=== PATIENT | female | born 1955 | race Native Hawaiian/Other Pacific Islander ===

== ENCOUNTER 2023-10-17 15:05 | Outpatient (CLI) | payer MEDICARE, OTHER, SELFPAY | END 2023-10-17 15:06 | disposition home or self-care (01) | LOC: AMB 10-20 03:00 | PROVIDERS: PCP Family Medicine; Visit Provider Family Medicine | DX: S79.912A Unspecified injury of left hip, initial encounter (principal); S69.92XA Unspecified injury of left wrist, hand and finger(s), initial encounter; W01.0XXA Fall on same level from slipping, tripping and stumbling without subsequent striking against object, initial encounter; Y92.008 Other place in unspecified non-institutional (private) residence as the place of occurrence of the external cause | CPT/HCPCS: A0425; A0427 ==

== ENCOUNTER 2023-10-17 15:35 | Observation (INO) | payer MEDICARE, OTHER, SELFPAY ==
[2023-10-17 15:43] VITALS: BP 116/81; PULSE 85; RESP 20; TEMP 36.3; O2SAT 96; BMI 24.0
--- NOTE | 2023-10-17 15:55 | CRLHL7_ITS ---
For Patients: As a result of the Cures Act, medical imaging exams and procedure reports are released immediately into your electronic medical record. You may view this report before your referring provider. If you have questions, please contact your health care provider. Indication: Fall Technique: Three views of the left wrist Comparison: None Findings/impression : Comminuted, predominantly transverse, impacted fracture of the distal left radial metaphysis with dorsal angulation of the distal fracture fragment. Displaced ulnar styloid process fracture. Moderate soft tissue swelling about the wrist. Vascular calcifications. Dictated by Dennis De La O MD @ 10/17/2023 5:27:57 PM (Electronically Signed)
--- NOTE | 2023-10-17 15:55 | CRLHL7_ITS ---
For Patients: As a result of the Century Cures Act, medical imaging exams and procedure reports are released immediately into your electronic medical record. You may view this report before your referring provider. If you have questions, please contact your health care provider. Indication: Fall Technique: Frontal view of the pelvis and frontal and lateral views of the left hip Comparison: None Findings/impression : No acute fracture or malalignment. No significant osteoarthritic degenerative changes of the bilateral hips. There are some degenerative changes of the visualized lower lumbar spine and bilateral sacroiliac joints. No acute soft tissue abnormality. Prominent calcific atherosclerosis. Dictated by Dennis De La O MD @ 10/17/2023 5:24:50 PM (Electronically Signed)
--- NOTE | 2023-10-17 16:00 | ED.FALL ---
HPI - Fall General Chief Complaint: Fall/Minor Trauma Stated Complaint: fall Time Seen by Provider: 10/17/23 15:45 History of Present Illness HPI Narrative: This 68-year-old female comes in with injuries because of a fall that occurred just prior to arrival. She comes in with left wrist injury in shows a deformity typical of a fracture. She also complains of pain in her left hip. She states that if she has not ambulated since the fall. She came in by ambulance and did receive an IV dose of pain medicine EN route here. Related Data Home Medications ?Medication ?Instructions ?Recorded ?Confirmed GNP 10/17/23 acetaminophen 500 mg tablet 500 mg PO Q8H PRN pain 10/17/23 10/17/23 amlodipine 5 mg tablet 5 mg PO DAILY 10/17/23 10/17/23 aspirin 81 mg tablet,delayed 81 mg PO DAILY 10/17/23 10/17/23 release blood sugar diagnostic (Accu-Chek 10/17/23 10/17/23 Guide test strips) carvedilol 25 mg tablet 25 mg PO BID 10/17/23 10/17/23 escitalopram oxalate 20 mg tablet 20 mg PO QAM 10/17/23 10/17/23 ferrous sulfate 325 mg (65 mg 325 mg PO DAILY 10/17/23 10/17/23 iron) tablet (FeroSul) hydralazine 100 mg tablet 100 mg PO 3XD 10/17/23 10/17/23 hydroxyzine HCl 10 mg tablet 10 mg PO QPM PRN anxiety 10/17/23 10/17/23 insulin aspart subcut 10/17/23 (niacinamide)(U-100) 100 unit/mL(3 mL) subcutaneous pen (Fiasp FlexTouch U-100 Insulin) insulin aspart U-100 100 unit/mL subcut 10/17/23 (3 mL) subcutaneous pen insulin glargine 100 unit/mL (3 8 unit subcut QPM 10/17/23 10/17/23 mL) subcutaneous pen (Basaglar KwikPen U-100 Insulin) isosorbide dinitrate 20 mg tablet 40 mg PO 3XD 10/17/23 10/17/23 oxycodone 5 mg tablet PO 10/17/23 pantoprazole 40 mg tablet,delayed 40 mg PO acid reflux 10/17/23 release pen needle, diabetic 31 gauge x 10/17/23 10/17/23 5/16 (BD Ultra-Fine Short Pen Needle) pravastatin 20 mg tablet 20 mg PO QPM 10/17/23 10/17/23 prednisone 10 mg tablet PO 10/17/23 sirolimus 0.5 mg tablet 0.5 mg PO DAILY 10/17/23 10/17/23 tacrolimus 0.5 mg capsule,extended mg PO 10/17/23 release 24 hr (Astagraf XL) torsemide 20 mg tablet 40 mg PO 10/17/23 vitamin E (dl, acetate) 180 mg 180 mg PO DAILY 10/17/23 10/17/23 (400 unit) capsule Previous Rx's ?Medication ?Instructions ?Recorded hydrocodone 5 mg-acetaminophen 325 1 tab PO Q4-6H PRN pain #15 tabs 10/17/23 mg tablet Allergies Allergy/AdvReac Type Severity Reaction Status Date / Time No Known Drug Allergies Allergy Verified 10/17/23 15:47 Review of Systems Status of ROS: Reports: 10 or more systems reviewed and unremarkable except as noted in History and below Narrative: Constitutional: No fevers, no weight gain or loss. Eyes: No discharge. No vision changes. HENT: No congestion, no sore throat, no ear pain. Cardiovascular: No chest pain, no palpitations. Respiratory: No shortness of breath, no wheezes, no cough. Gastrointestinal: No abdominal pain, no vomiting, no diarrhea. Genitourinary: No dysuria, no hematuria. Musculoskeletal: Left wrist and left hip injury. Skin: No rashes, no pruritis. Neurological: No dizziness, weakness, sensory change, speech change. Endo/Heme/Allergies: No bruising or bleeding. No polydipsia. Pysch: no suicidality, no anxiety, no insomnia. All other systems reviewed and are negative. PFSH PFS Social History Smoking Status: Never smoker How often do you have a drink containing alcohol: never AUDIT-C Alcohol total score: 0 Non-prescribed substance use: denies use service: No Exam Narrative: Exam Narrative: Constitutional: Well-developed, well-nourished, no acute distress. HEENT: Normocephalic, atraumatic. Neck: Normal range of motion. Nontender. Supple. Heart: Regular. Normal rate. Intact distal pulses. Lungs: Clear to auscultation. No chest discomfort. No wheezes, rhonchi, or rales. Abdomen: Normal bowel sounds. Nontender. No rebound tenderness. Genitalia: Deferred. Back: No midline tenderness. Normal range of motion. Extremities: Left wrist has deformity typical of a fracture. Left hip pain. Skin: Intact. No rash. Warm. No erythema or pallor. Neurologic: No altered sensation. No weakness. Alert and oriented. Psychiatric: No suicidality. No anxiety or depression. No insomnia. Nursing notes and vitals signs are reviewed. Const: Vital Signs, click to edit/add: Vital Signs - 24 hr 10/17/23 15:43 Temperature 97.3 F L Pulse Rate [Pulse Oximeter] 85 Respiratory Rate 20 Blood Pressure [Ri ght Upper Arm] 116/81 Pulse Oximetry 96 Oxygen Delivery Me thod Room Air Course Vital Signs Vital signs: Initial Vital Signs Temperature 97.3 F L 10/17/23 15:43 Temperature Source Temporal Artery Scan 10/17/23 15:43 Pulse Rate 85 10/17/23 15:43 Pulse Rhythm Regular 10/17/23 15:43 Respiratory Rate 20 10/17/23 15:43 Blood Pressure 116/81 10/17/23 15:43 Blood Pressure Mean 92 10/17/23 15:43 Blood Pressure Position Sitting 10/17/23 15:43 Pulse Oximetry 96 10/17/23 15:43 Oxygen Delivery Method Room Air 10/17/23 15:43 Vital Signs Temperature 97.3 F L 10/17/23 15:43 Pulse Rate 85 10/17/23 15:43 Respiratory Rate 20 10/17/23 15:43 Blood Pressure 116/81 10/17/23 15:43 Pulse Oximetry 96 10/17/23 15:43 Oxygen Delivery Method Room Air 10/17/23 15:43 Temperature 97.3 F L 10/17/23 15:43 Pulse Rate 85 10/17/23 15:43 Respiratory Rate 20 10/17/23 15:43 Blood Pressure 116/81 10/17/23 15:43 Pulse Oximetry 96 10/17/23 15:43 Oxygen Delivery Method Room Air 10/17/23 15:43 Medications Administered Medications: Discontinued Medications Generic Name Dose Route Start Last Admin Trade Name Freq PRN Reason Stop Dose Admin Hydromorphone HCl 0.2 mg 10/17/23 15:59 10/17/23 16:08 Hydromorphone 0.5 Mg/0.5 Ml Inj IVP 10/17/23 16:00 0.2 mg ONCE ONE Administration MDM - Fall MDM Narrative Medical decision making narrative: This patient comes in for evaluation of injuries from a fall that occurred just prior to arrival. She arrives with an obvious deformity of her left wrist but also complains of pain in her left hip. An x-ray of the left hip and pelvis is obtained and by my review and chordee to radiology report shows no acute findings. The left wrist does have an obvious fracture that is angulated. The patient received an IV in the ambulance on the way here and a dose of pain medicine. She received an additional dose of Dilaudid 0.2 mg for pain after arrival here. The patient's wrist would benefit from a reduction and I discussed options for pain management in doing so. She agreed to attempt a hematoma block. I did administer 5 mL of lidocaine 1% without much relief. I made a 2nd attempt in a different area and this brought great relief. I was able to manipulate her wrist without any discomfort. An x-ray was done after reduction and showed improvement in the alignment. The patient was placed in a sugar-tong splint using Ortho Glass material and then placed in a sling. She received a prescription for [employer] [facility] and is instructed to follow-up with orthopedic clinic for further management. Imaging Data XR L Hip: Radiologist's impression: No acute fracture or malalignment. XR L Wrist: Radiologist's impression: Comminuted, predominantly transverse, impacted fracture of the distal left radial metaphysis with dorsal angulation of the distal fracture fragment. Discharge Plan Discharge Clinical Impression: Fracture of wrist Patient Disposition: Home w/ Parent or Adult Condition: Stable Additional Instructions: Wear wrist splint and use pain medicine as needed and directed. Follow-up with orthopedic clinic for ongoing management. Call [phone] for appointment. Prescriptions: New hydrocodone-acetaminophen 5-325 mg tablet 1 tab PO Q4-6H PRN (Reason: pain) Qty: 15 0RF No Action (DME) Accu-Chek Guide test strips Strip MISCELLANEOUS QID amlodipine 5 mg tablet 5 mg PO DAILY aspirin 81 mg tablet,delayed release (DR/EC) 81 mg PO DAILY acetaminophen 500 mg tablet 500 mg PO Q8H PRN (Reason: pain) carvedilol 25 mg tablet 25 mg PO BID ferrous sulfate [FeroSul] 325 mg (65 mg iron) tablet 325 mg PO DAILY escitalopram oxalate 20 mg tablet 20 mg PO QAM GNP prednisone 10 mg tablet PO torsemide 20 mg tablet 40 mg PO hydralazine 100 mg tablet 100 mg PO 3XD pantoprazole 40 mg tablet,delayed release (DR/EC) 40 mg PO isosorbide dinitrate 20 mg tablet 40 mg PO 3XD pravastatin 20 mg tablet 20 mg PO QPM hydroxyzine HCl 10 mg tablet 10 mg PO QPM PRN (Reason: anxiety) oxycodone 5 mg tablet PO (DME) pen needle, diabetic [BD Ultra-Fine Short Pen Needle] 31 gauge x 5/16 needle MISCELLANEOUS Patient Comments: USE TO ADMINISTER INSULIN AT HOME FOUR TIMES A DAY. insulin aspart U-100 100 unit/mL (3 mL) insulin pen subcut insulin glargine [Basaglar KwikPen U-100 Insulin] 100 unit/mL (3 mL) insulin pen 8 unit subcut QPM vitamin E (dl, acetate) 180 mg (400 unit) capsule 180 mg PO DAILY sirolimus 0.5 mg tablet 0.5 mg PO DAILY Astagraf XL 0.5 mg capsule,extended release 24hr PO Fiasp FlexTouch U-100 Insulin 100 unit/mL (3 mL) insulin pen subcut Follow Up/Referrals: Ginger Ewing DO [Primary Care Provider] - Stand Alone Forms: [facility] Info Instructions
[2023-10-17] MEDS: HYDROmorphone 0.5 mg/0.5 ml inj 0.2 MG IVP (16:08)
--- NOTE | 2023-10-17 18:13 | CRLHL7_ITS ---
For Patients: As a result of the Century Cures Act, medical imaging exams and procedure reports are released immediately into your electronic medical record. You may view this report before your referring provider. If you have questions, please contact your health care provider. Indication: POST-REDUCTION Technique: Single lateral view of the left wrist Comparison: Same day left wrist radiograph Findings/impression : Successful reduction of the previously visualized distal radial and ulnar fractures which now appear in anatomic alignment on single provided lateral view. Interval worsening of soft tissue edema throughout the wrist and now hand. Dictated by Dennis De La O MD @ 10/17/2023 6:54:10 PM (Electronically Signed)
[2023-10-17 18:48] VITALS: BP 121/80; PULSE 86; RESP 18; O2SAT 95
--- NOTE | 2023-10-17 18:48 | P.IMHP_ITS ---
Hospitalist- H&P: RADHA History of Present Illness Date Seen: 10/17/23 Chief complaint: fall Narrative: Anna Quiroz is a 68 year old female who fell on her wrist today. She lives with her daughter. She was in her living room got up from her couch. She thinks she tripped over plastic. She is unsure if she hit her head or had LOC. She presented to ED and complained left wrist and hip pain. In the ED xray wrist Comminuted, predominantly transverse, impacted fracture of the distal left radial metaphysis with dorsal angulation of the distal fracture fragment. Displaced ulnar styloid process fracture. Moderate soft tissue swelling about the wrist. Vascular calcifications.In the ED she underwent a hematoma block. She was originally going to discharge home but she did not pass road test. Xray of pelvis showed no acute findings. She currently denies chest pain, headache, dizziness. She endorses left wrist pain. xray hip Findings/impression : No acute fracture or malalignment. No significant osteoarthritic degenerative changes of the bilateral hips. There are some degenerative changes of the visualized lower lumbar spine and bilateral sacroiliac joints. No acute soft tissue abnormality. Prominent calcific atherosclerosis. xray wrist Successful reduction of the previously visualized distal radial and ulnar fractures which now appear in anatomic alignment on single provided lateral view. Interval worsening of soft tissue edema throughout the wrist and now hand. xray Comminuted, predominantly transverse, impacted fracture of the distal left radial metaphysis with dorsal angulation of the distal fracture fragment. Displaced ulnar styloid process fracture. Moderate soft tissue swelling about the wrist. Vascular calcifications. PFSH PFSH Social History What is your current living situation?: I presently have a place to live Problems where you live: no known problems Problems where you live details: N/A In the past 12 months, utilities in danger of being shut off: no In past 12 months, lack of transportation kept you from medical appts, meetings, work, or getting things needed for daily living: no In the past 12 mos, have been you worried that your food would run out before you had money to buy more?: never true In the past 12 mos, the food you bought just didn't last and you didn't have money to buy more?: never true Smoking Status: Never smoker How often do you have a drink containing alcohol: never AUDIT-C Alcohol total score: 0 Non-prescribed substance use: denies use How often does anyone, including family, friends and others, physically hurt you : never How often does anyone, including family, friends and others, insult or talk down to you: never How often does anyone, including family, friends and others, threaten you with harm: never How often does anyone, including family, friends and others, scream or curse at you: never service: No Meds Home Medications and Allergies Home Medications ?Medication ?Instructions ?Recorded ?Confirmed ?Type GNP 10/17/23 History acetaminophen 500 mg tablet 500 mg PO Q8H PRN pain 10/17/23 10/17/23 History amlodipine 5 mg tablet 5 mg PO DAILY 10/17/23 10/17/23 History aspirin 81 mg tablet,delayed 81 mg PO DAILY 10/17/23 10/17/23 History release blood sugar diagnostic (Accu-Chek 10/17/23 10/17/23 History Guide test strips) carvedilol 25 mg tablet 25 mg PO BID 10/17/23 10/17/23 History escitalopram oxalate 20 mg tablet 20 mg PO QAM 10/17/23 10/17/23 History ferrous sulfate 325 mg (65 mg 325 mg PO DAILY 10/17/23 10/17/23 History iron) tablet (FeroSul) hydralazine 100 mg tablet 100 mg PO 3XD 10/17/23 10/17/23 History hydroxyzine HCl 10 mg tablet 10 mg PO QPM PRN anxiety 10/17/23 10/17/23 History insulin aspart subcut 10/17/23 History (niacinamide)(U-100) 100 unit/mL(3 mL) subcutaneous pen (Fiasp FlexTouch U-100 Insulin) insulin aspart U-100 100 unit/mL subcut 10/17/23 History (3 mL) subcutaneous pen insulin glargine 100 unit/mL (3 8 unit subcut QPM 10/17/23 10/17/23 History mL) subcutaneous pen (Basaglar KwikPen U-100 Insulin) isosorbide dinitrate 20 mg tablet 40 mg PO 3XD 10/17/23 10/17/23 History oxycodone 5 mg tablet PO 10/17/23 History pantoprazole 40 mg tablet,delayed 40 mg PO acid reflux 10/17/23 History release pen needle, diabetic 31 gauge x 10/17/23 10/17/23 History 5/16 (BD Ultra-Fine Short Pen Needle) pravastatin 20 mg tablet 20 mg PO QPM 10/17/23 10/17/23 History prednisone 10 mg tablet PO 10/17/23 History sirolimus 0.5 mg tablet 0.5 mg PO DAILY 10/17/23 10/17/23 History tacrolimus 0.5 mg capsule,extended mg PO 10/17/23 History release 24 hr (Astagraf XL) torsemide 20 mg tablet 40 mg PO 10/17/23 History vitamin E (dl, acetate) 180 mg 180 mg PO DAILY 10/17/23 10/17/23 History (400 unit) capsule Allergies Allergy/AdvReac Type Severity Reaction Status Date / Time No Known Drug Allergies Allergy Verified 10/17/23 15:47 Exam Narrative: Exam Narrative: Gen: no acute distress HEENT: NCAT EOMI mmm Neck: Supple CV: RRR normal s1 s2 Lungs: CTAB Abd: Soft,nt, nd Neuro: Alert, oriented, CN grossly intact; nonfocal screening?exam Psych: appropriate affect MSK: age appropriate muscle mass; left forearm in splint Skin; Warm, dry no rash on face Const: Vital Signs, click to edit/add: Vital Signs - 24 hr 10/17/23 15:43 Temperature 97.3 F L Pulse Rate [Pulse Oximeter] 85 Respiratory Rate 20 Blood Pressure [Ri ght Upper Arm] 116/81 Pulse Oximetry 96 Oxygen Delivery Me thod Room Air Assessment and Plan Assessment and plan (1) Fracture of wrist: Status: Acute (2) Type II diabetes mellitus: Status: Acute (3) Depression: Status: Acute (4) CKD stage 4 secondary to hypertension: Status: Acute (5) Heart transplant status: Status: Acute (6) Systolic CHF: Status: Acute Plan 68F presenting with suspected mechanical fall now with Comminuted, predominantly transverse, impacted fracture of the distal left radial metaphysis with dorsal angulation of the distal fracture fragment. Displaced ulnar styloid process fracture. Plan -admit to obs -pain control -CT head -CT pelvis -obtain medical records from [facility] -obtain baseline CBC, BMP -non urgent ortho consult in AM -PT, OT SW consult may need home care services vs short term rehab Code-DNR/DNI
[2023-10-17 19:41] VITALS: BP 118/73; PULSE 86; RESP 18; TEMP 37.3; O2SAT 95
--- NOTE | 2023-10-17 19:55 | CRLHL7_ITS ---
For Patients: As a result of the Cures Act, medical imaging exams and procedure reports are released immediately into your electronic medical record. You may view this report before your referring provider. If you have questions, please contact your health care provider. INDICATION: Fall. COMPARISON: None. TECHNIQUE: Noncontrast CT head. FINDINGS: Normal brain parenchymal morphology. No acute intracranial hemorrhage, acute infarct, focal edema, mass effect, or fracture. No midline shift. No abnormal ventricular dilatation. Normal calvarium and skull base. Visualized paranasal sinuses and mastoid air cells are clear. Normal orbits bilaterally. IMPRESSION: 1. No acute intracranial abnormality. 2. Normal brain parenchymal morphology. Please note that all CT scans at this facility use dose modulation, iterative reconstruction, and/or weight-based dosing when appropriate to reduce radiation dose to as low as reasonably achievable. Dictated by Cleveland Pickens MD @ 10/17/2023 9:22:18 PM (Electronically Signed)
[2023-10-17] MEDS: OXYCODONE 5 MG TABLET PO (20:27)
[2023-10-17 20:56] VITALS: BP 118/73; PULSE 86; RESP 18; TEMP 37.3; O2SAT 95; BMI 24.4
--- NOTE | 2023-10-17 21:06 | CRLHL7_ITS ---
For Patients: As a result of the Century Cures Act, medical imaging exams and procedure reports are released immediately into your electronic medical record. You may view this report before your referring provider. If you have questions, please contact your health care provider. Indication: Fall, left hip pain Technique: CT of the left hip without contrast Comparison: Same day radiographs Findings: Bones: Minimally displaced fracture through the greater trochanter. No additional fracture appreciated. Joints: No large effusion. No malalignment. Soft tissues: Mild soft tissue swelling. Impression: Minimally displaced fracture through the greater trochanter. Please note that all CT scans at this facility use dose modulation, iterative reconstruction, and/or weight-based dosing when appropriate to reduce radiation dose to as low as reasonably achievable. Dictated by Salvatore Gillis MD @ 10/17/2023 9:55:07 PM (Electronically Signed)
[2023-10-17 21:42] LABS: Basophils Absolute Auto 0.04 K/uL (0.00-0.30); Basophils Percent Auto 0.4 % (0.0-3.0); Eosinophils Absolute Auto 0.04 K/uL (0.00-0.50); Eosinophils Percent Auto 0.4 % (0.0-7.0); Hematocrit 37.5 % (33.0-51.0); Hemoglobin* 11.7 gm/dL (12.0-16.0); Immature Granulocytes Abs Auto 0.07 K/uL (0.00-0.30); Immature Granulocytes Pct Auto 0.7 %; Lymphocytes Percent Auto 11.1 % (20-44); Mean Corpuscular HGB Conc 31 gm/dL (32-36); Mean Corpuscular Hemoglobin 27 pg (26-34); Mean Corpuscular Volume 87 fL (80-100); Monocytes Percent Auto 7.3 % (0.0-11.0); Neutrophils Percent Auto 80.1 % (42.0-72.0); Platelet Count* 166 K/uL (140-440); RDW Coefficient of Variation % 14.1 % (11.5-15.5); White Blood Count* 10.35 K/uL (4.50-11.00)
[2023-10-17 21:53] LABS: Slide Review Reflex No
[2023-10-17 21:54] LABS: Chloride* 104 mmol/L (96-114)
[2023-10-17 21:55] LABS: Potassium* 4.4 mmol/L (3.6-5.1); Sodium* 137 mmol/L (135-149)
[2023-10-17 21:57] LABS: Creatinine* 2.5 mg/dL (0.5-1.5); Estimated Glomerular Filt Rate 20 ml/min
[2023-10-17 21:58] LABS: Anion Gap 13 mEq/L (7-15); Blood Urea Nitrogen* 101 mg/dL (7-30); Calcium* 8.4 mg/dL (8.4-10.6); Carbon Dioxide* 20 mmol/L (20-32); Glucose* 196 mg/dL (60-115)
[2023-10-17] MEDS: ACETAMINOPHEN 325 MG TABLET 650 MG PO (22:10)
[2023-10-17] MEDS: INSULIN ASPART 100 UNIT/ML SUBCUT (22:22)
[2023-10-17] MEDS: INSULIN GLARGINE,HUM.REC.ANLOG 100 UNIT/ML INSULN.PEN 8 UNIT SUBCUT (22:32)
[2023-10-17 23:00] VITALS: BP 130/84; PULSE 89; RESP 18; TEMP 36.6; O2SAT 95
[2023-10-18] VITALS (7 sets, daily range): BP systolic 104–128; BP diastolic 69–83; PULSE 81–86; RESP 16–18; TEMP 36.8–37.2; O2SAT 92–98
[2023-10-18] MEDS: ISOSORBIDE DINITRATE 10 MG TABLET 40 MG PO ×4 (00:01→23:31)
[2023-10-18] MEDS: OXYCODONE 5 MG TABLET PO ×5 (00:25→23:31)
[2023-10-18 06:22] LABS: Basophils Absolute Auto 0.02 K/uL (0.00-0.30); Basophils Percent Auto 0.3 % (0.0-3.0); Eosinophils Absolute Auto 0.06 K/uL (0.00-0.50); Eosinophils Percent Auto 0.8 % (0.0-7.0); Hematocrit 36.7 % (33.0-51.0); Hemoglobin* 11.5 gm/dL (12.0-16.0); Immature Granulocytes Abs Auto 0.06 K/uL (0.00-0.30); Immature Granulocytes Pct Auto 0.8 %; Lymphocytes Percent Auto 17.2 % (20-44); Mean Corpuscular HGB Conc 31 gm/dL (32-36); Mean Corpuscular Hemoglobin 27 pg (26-34); Mean Corpuscular Volume 88 fL (80-100); Monocytes Percent Auto 12.3 % (0.0-11.0); Neutrophils Absolute Auto 5.21 K/uL (1.7-7.0); Neutrophils Percent Auto 68.6 % (42.0-72.0); Platelet Count* 145 K/uL (140-440); RDW Coefficient of Variation % 14.4 % (11.5-15.5); Red Blood Count 4.19 m/uL (4.00-5.20); White Blood Count* 7.58 K/uL (4.50-11.00)
[2023-10-18 06:33] LABS: Slide Review Reflex No
[2023-10-18 07:04] LABS: INR 1.01 (0.91-1.10)
[2023-10-18 07:10] LABS: Albumin* 4.1 g/dL (3.3-5.0); Chloride* 102 mmol/L (96-114); Sodium* 137 mmol/L (135-149)
[2023-10-18 07:13] LABS: Alanine Aminotransferase* 25 U/L (4-35); Alkaline Phosphatase* 97 U/L (40-150); Anion Gap 12 mEq/L (7-15); Aspartate Amino Transferase* 28 U/L (12-35); Bilirubin Total* 0.7 mg/dL (0.1-1.5); Blood Urea Nitrogen* 99 mg/dL (7-30); Carbon Dioxide* 23 mmol/L (20-32); Creatinine* 2.7 mg/dL (0.5-1.5); Est. Creatinine Clearance* 14.63; Estimated Glomerular Filt Rate 18 ml/min; Glucose* 136 mg/dL (60-115); Total Protein* 7.1 g/dL (6.0-8.3)
[2023-10-18 07:14] LABS: Calcium* 8.5 mg/dL (8.4-10.6)
[2023-10-18] MEDS: ACETAMINOPHEN 325 MG TABLET 650 MG PO (07:58)
--- NOTE | 2023-10-18 08:00 | PC.NURSE ---
End of shift note ([id number]) Patient admitted from Ed at 1931. Rated pain 5-7/10 in her left wrist, hip and back. PRN Tylenol and oxycodone given; ice pack applied to L wrist. Pt reports L wrist pain never completely goes away. Compound Filler used when family not here. Per pt ok for family to translate for her when she they are present. Used bed [place] for toileting. NPO since 0000. Had sips of water with medications.
--- NOTE | 2023-10-18 08:56 | P.ORCN_ITS ---
History of Present Illness HPI Date Seen: 10/18/23 Chief complaint: fall Narrative: From the medical chart I learned that Anna is a 68-year-old female who had a fall on 10/17/2023 in her house from a standing height after tripping on an object while rising from her couch. She landed on outstretched left arm and in some respects her left hip. She presents [facility]. X-rays of the left wrist showed a dorsally angulated and displaced distal radius and ulna fracture. X-rays of her pelvis showed a nondisplaced left greater trochanteric fracture. She underwent closed reduction with manipulation of the left distal radius fracture. Postreduction films show excellent improvement in her left wrist position. She was admitted to the hospital overnight, however, as she did not pass the road test. Orthopedics was consulted to provide some insight as to proper treatment moving forward for the ease fractures. [facility] Medical History (Updated 10/19/23 @ 13:11 by Krystina Smith MD) Type II diabetes mellitus ?E11.9 - Type 2 diabetes mellitus without complications (ICD-10) Depression ?F32.A - Depression, unspecified (ICD-10) CKD stage 4 secondary to hypertension ?I12.9 - Hypertensive chronic kidney disease with stage 1 through stage 4 chronic kidney disease, or unspecified chronic kidney disease (ICD-10) ?N18.4 - Chronic kidney disease, stage 4 (severe) (ICD-10) Systolic CHF ?I50.20 - Unspecified systolic (congestive) heart failure (ICD-10) Surgical History (Updated 10/19/23 @ 08:16 by Krystina Smith MD) Heart transplant status ?Z94.1 - Heart transplant status (ICD-10) Social History What is your current living situation?: I presently have a place to live Problems where you live: no known problems Problems where you live details: N/A In the past 12 months, utilities in danger of being shut off: no In past 12 months, lack of transportation kept you from medical appts, meetings, work, or getting things needed for daily living: no In the past 12 mos, have been you worried that your food would run out before you had money to buy more?: never true In the past 12 mos, the food you bought just didn't last and you didn't have money to buy more?: never true Smoking Status: Never smoker How often do you have a drink containing alcohol: never AUDIT-C Alcohol total score: 0 Non-prescribed substance use: denies use How often does anyone, including family, friends and others, physically hurt you : never How often does anyone, including family, friends and others, insult or talk down to you: never How often does anyone, including family, friends and others, threaten you with harm: never How often does anyone, including family, friends and others, scream or curse at you: never service: No Meds Home Medications and Allergies Home Medications ?Medication ?Instructions ?Recorded ?Confirmed ?Type amlodipine 5 mg tablet 5 mg PO DAILY 10/17/23 10/17/23 History aspirin 81 mg tablet,delayed 81 mg PO DAILY 10/17/23 10/17/23 History release blood sugar diagnostic (Accu-Chek 10/17/23 10/17/23 History Guide test strips) carvedilol 25 mg tablet 25 mg PO BID 10/17/23 10/17/23 History escitalopram oxalate 20 mg tablet 20 mg PO QAM 10/17/23 10/17/23 History ferrous sulfate 325 mg (65 mg 325 mg PO DAILY 10/17/23 10/17/23 History iron) tablet (FeroSul) hydralazine 100 mg tablet 100 mg PO TID 10/17/23 10/18/23 History hydroxyzine HCl 10 mg tablet 10 mg PO HS PRN anxiety 10/17/23 10/18/23 History insulin aspart 5 - 7 unit subcut TIDWM 10/17/23 10/18/23 History (niacinamide)(U-100) 100 unit/mL(3 mL) subcutaneous pen (Fiasp FlexTouch U-100 Insulin) insulin glargine 100 unit/mL (3 8 unit subcut HS 10/17/23 10/18/23 History mL) subcutaneous pen (Basaglar KwikPen U-100 Insulin) isosorbide dinitrate 20 mg tablet 40 mg PO TID 10/17/23 10/18/23 History pantoprazole 40 mg tablet,delayed 40 mg PO DAILY acid reflux 10/17/23 10/18/23 History release pen needle, diabetic 31 gauge x 10/17/23 10/17/23 History 5/16 (BD Ultra-Fine Short Pen Needle) pravastatin 20 mg tablet 20 mg PO HS 10/17/23 10/18/23 History prednisone 10 mg tablet 5 mg PO DAILY 10/17/23 10/18/23 History sirolimus 0.5 mg tablet 0.5 mg PO DAILY 10/17/23 10/17/23 History tacrolimus 0.5 mg capsule,extended 1.5 mg PO DAILY 10/17/23 10/18/23 History release 24 hr (Astagraf XL) torsemide 20 mg tablet 40 mg PO DAILY 10/17/23 10/18/23 History vitamin E (dl, acetate) 180 mg 180 mg PO DAILY 10/17/23 10/17/23 History (400 unit) capsule cholecalciferol (vitamin D3) 50 50 mcg PO DAILY 10/18/23 10/18/23 History mcg (2,000 unit) tablet omega-3 1,050 [id number] 1 cap PO TID 10/18/23 10/18/23 History oil 1,200 mg capsule ([place]-3 2100) Allergies Allergy/AdvReac Type Severity Reaction Status Date / Time No Known Drug Allergies Allergy Verified 10/17/23 15:47 Ortho Exam Const Vital Signs, click to edit/add: Vital Signs - 24 hr 10/17/23 15:43 10/17/23 18:48 10/17/23 19:41 Temperature 97.3 F L 99.1 F Pulse Rate Pulse Rate [Pulse Oximeter] 85 86 86 Respiratory Rate 20 18 18 Blood Pressure [Right Arm] 118/73 Blood Pressure [Right Upper Arm] 116/81 121/80 Pulse Oximetry 96 95 95 Oxygen Delivery Method Room Air Room Air Room Air Oxygen Flow Rate 10/17/23 20:56 10/17/23 23:00 10/18/23 02:31 Temperature 99.1 F 97.9 F 98.3 F Pulse Rate Pulse Rate [Pulse Oximeter] 86 89 81 Respiratory Rate 18 18 18 Blood Pressure [Right Arm] 118/73 130/84 127/79 Blood Pressure [Right Upper Arm] Pulse Oximetry 95 95 97 Oxygen Delivery Method Room Air Nasal Cannula Nasal Cannula Oxygen Flow Rate 2.5 2.5 10/18/23 04:35 10/18/23 07:00 10/18/23 07:00 Temperature 98.7 F Pulse Rate 81 Pulse Rate [Pulse Oximeter] 81 81 Respiratory Rate 16 16 Blood Pressure [Right Arm] 128/83 Blood Pressure [Right Upper Arm] Pulse Oximetry 98 Oxygen Delivery Method Nasal Cannula Oxygen Flow Rate 2.5 10/18/23 08:54 Temperature Pulse Rate 81 Pulse Rate [Pulse Oximeter] Respiratory Rate Blood Pressure [Right Arm] Blood Pressure [Right Upper Arm] Pulse Oximetry Oxygen Delivery Method Oxygen Flow Rate Common normals: no apparent distress and alert Resp Common normals: Yes normal respiratory effort Extremity Left upper extremity: lower arm Left lower arm: inspection (Long-arm splint left upper extremity. Digits swollen. Digits pink, warm, b) Neuro Sensorium/orientation: alert Results Labs Labs: Laboratory Results - last 48 hr 10/17/23 10/18/23 21:33 05:39 WBC 10.35 7.58 RBC 4.30 4.19 Hgb 11.7 L 11.5 L Hct 37.5 36.7 MCV 87 88 MCH 27 27 MCHC 31 L 31 L RDW Coeff of Merrick 14.1 14.4 Plt Count 166 145 Neut % (Auto) 80.1 H 68.6 Lymph % (Auto) 11.1 L 17.2 L Dick[place] % (Auto) 7.3 12.3 H Eos % (Auto) 0.4 0.8 Baso % (Auto) 0.4 0.3 Neut # (Auto) 8.30 H 5.21 Lymph # (Auto) 1.10 1.30 [place] # (Auto) 0.80 0.90 Eos # (Auto) 0.04 0.06 Baso # (Auto) 0.04 0.02 Abs Immat Gran (auto) 0.07 0.06 Imm/Tot Granulo (auto) 0.7 0.8 INR 1.01 Sodium 137 137 Potassium 4.4 4.0 Chloride 104 102 Carbon Dioxide 20 23 Anion Gap 13 12 BUN 101 H 99 H Creatinine 2.5 H 2.7 H Estimated Creat Clear 15.80 14.63 Estimated GFR 20 18 Glucose 196 H 136 H Calcium 8.4 8.5 Total Bilirubin 0.7 AST 28 ALT 25 Alkaline Phosphatase 97 Total Protein 7.1 Albumin 4.1 Diagnostic results Additional Comments: Three views left wrist from [facility] dated 10/17/2023 were ordered by a different provider and reviewed by me. These pre reduction films show dorsally angulated and displaced comminuted intra-articular left distal radius fracture and ulnar styloid involvement. There is significant shortening and dorsal angulation approximately 70?. Single lateral view from [facility] dated 10/17/2023 was ordered by a different provider and reviewed by me. This post reduction view of the left wrist shows near anatomic alignment to the distal radius with druze of length and angulation. AP pelvis, AP and cross-table lateral view left hip from [facility] dated 10/17/2023 were ordered by a different provider and reviewed by me. This shows nondisplaced left greater trochanteric fracture. Well-preserved hip joint spaces bilaterally. Incidentally, L4-5 and L5-S1 degenerative changes seen but disc height narrowing and osteophyte formation. CT scan of the pelvis from [facility] dated 10/17/2023 was ordered by a different provider and reviewed by me. This shows again the essentially nondisplaced left greater trochanteric fracture. No intertrochanteric extension. Left hip joint is otherwise well preserved. No other fractures evident. Assessment and Plan Assessment and plan (1) Fracture of wrist: Problem comment: Non operative care. Splint placed. Orthopedic follow-up as outlined in discharge summary. Status: Acute Total time spent: Total time spent is greater than 50% in coordination of care (as documented) at patient's floor/unit and/or counseling patient: (2) Type II diabetes mellitus: Problem comment: continue lantus and SSI Status: Acute Total time spent: Total time spent is greater than 50% in coordination of care (as documented) at patient's floor/unit and/or counseling patient: (3) Depression: Problem comment: continue lexapro Status: Acute Total time spent: Total time spent is greater than 50% in coordination of care (as documented) at patient's floor/unit and/or counseling patient: (4) CKD stage 4 secondary to hypertension: Problem comment: -stable, followed by nephrology. 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 at [facility] -continue prednisone, tacrolimus and sirolimus Status: Acute Total time spent: Total time spent is greater than 50% in coordination of care (as documented) at patient's floor/unit and/or counseling patient: (6) Systolic CHF: Problem comment: chronic; 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 Quad cane recommended by Physical therapy. In- home physical and occupational therapy recommended at discharge. She will be staying with her daughter. Follow-up with orthopedics as outlined in discharge summary. Status: Acute Plan I was able to communicate with the hospitalist, Dr. Walker today. The reduced left distal radius fracture from the emergency room is in an excellent position. I think at this stage it is appropriate to maintain the splint that she is in and follow up in Orthopedic Clinic in approximately 1 week with repeat x-rays left wrist-two views. If the fracture falls to a displaced form, it may require surgery, but no urgency at this moment. Regarding left greater trochanteric fracture, this should do well in a nonoperative manner. Weightbear as tolerated left lower extremity. She will likely need a platform walker given the left distal radius fracture. Follow-up in our clinic with monitoring/repeat radiographs will be prudent.
[2023-10-18] MEDS: ASPIRIN 81 MG TABLET EC PO (09:13)
[2023-10-18] MEDS: carvediloL 25 MG TABLET PO ×2 (09:13→20:48)
[2023-10-18] MEDS: predniSONE 10 MG TABLET PO (09:13)
[2023-10-18] MEDS: TORSEMIDE 20 MG TABLET 40 MG PO (09:13)
[2023-10-18] MEDS: SODIUM CHLORIDE 0.9 % (FLUSH) 10 ML SYRINGE 5 ML IVF ×2 (09:13→20:50)
[2023-10-18] MEDS: ESCITALOPRAM 10 MG TABLET 20 MG PO (09:13)
[2023-10-18] MEDS: OMEPRAZOLE 20 MG CAPSULE DR 40 MG PO (09:34)
[2023-10-18] MEDS: OXYCODONE 5 MG TABLET 10 MG PO (09:35)
--- NOTE | 2023-10-18 10:03 | P.IMPN_ITS ---
Progress Note: A&P Assessment and plan (1) Fracture of greater trochanter of left femur: Problem details: Minimally displaced fracture through the greater trochanter. 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 at [facility] -continue coreg, imdur, statin, aspirin hold hydralazine and norvasc Status: Acute (4) Heart transplant status: Problem details: 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 at [facility] -continue prednisone, tacrolimus and sirolimus Status: Acute (5) CKD stage 4 secondary to hypertension: Problem details: daily BMP; avoid NSAIDS and nephrotoxic agents Status: Acute (6) Depression: Problem details: continue lexapro Status: Acute (7) Type II diabetes mellitus: Problem details: continue lantus and SSI Status: Acute Plan patient lives with daughter, daughter updated, Dispo TBD pending therapy recs short term rehab vs C, pain control Subjective Date Seen: 10/18/23 Interval history: patient having left hip pain (lost IV access) case discussed with Ortho no plans for surgery Exam Const: Vital Signs, click to edit/add: Vital Signs - 24 hr 10/17/23 15:43 10/17/23 18:48 10/17/23 19:41 Temperature 97.3 F L 99.1 F Pulse Rate Pulse Rate [Pulse Oximeter] 85 86 86 Respiratory Rate 20 18 18 Blood Pressure [Ri ght Arm] 118/73 Blood Pressure [Ri ght Upper Arm] 116/81 121/80 Pulse Oximetry 96 95 95 Oxygen Delivery Me thod Room Air Room Air Room Air Oxygen Flow Rate 10/17/23 20:56 10/17/23 23:00 10/18/23 02:31 Temperature 99.1 F 97.9 F 98.3 F Pulse Rate Pulse Rate [Pulse Oximeter] 86 89 81 Respiratory Rate 18 18 18 Blood Pressure [Ri ght Arm] 118/73 130/84 127/79 Blood Pressure [Ri ght Upper Arm] Pulse Oximetry 95 95 97 Oxygen Delivery Me thod Room Air Nasal Cannula Nasal Cannula Oxygen Flow Rate 2.5 2.5 10/18/23 04:35 10/18/23 07:00 10/18/23 07:00 Temperature 98.7 F Pulse Rate 81 Pulse Rate [Pulse Oximeter] 81 81 Respiratory Rate 16 16 Blood Pressure [Ri ght Arm] 128/83 Blood Pressure [Ri ght Upper Arm] Pulse Oximetry 98 Oxygen Delivery Me thod Nasal Cannula Oxygen Flow Rate 2.5 10/18/23 08:54 Temperature Pulse Rate 81 Pulse Rate [Pulse Oximeter] Respiratory Rate Blood Pressure [Ri ght Arm] Blood Pressure [Ri ght Upper Arm] Pulse Oximetry Oxygen Delivery Me thod Oxygen Flow Rate Labs Labs: Laboratory Results - last 24 hr 10/17/23 10/18/23 21:33 05:39 WBC 10.35 7.58 RBC 4.30 4.19 Hgb 11.7 L 11.5 L Hct 37.5 36.7 MCV 87 88 MCH 27 27 MCHC 31 L 31 L RDW Coeff of Merrick 14.1 14.4 Plt Count 166 145 Neut % (Auto) 80.1 H 68.6 Lymph % (Auto) 11.1 L 17.2 L [place] % (Auto) 7.3 12.3 H Eos % (Auto) 0.4 0.8 Baso % (Auto) 0.4 0.3 Neut # (Auto) 8.30 H 5.21 Lymph # (Auto) 1.10 1.30 [place] # (Auto) 0.80 0.90 Eos # (Auto) 0.04 0.06 Baso # (Auto) 0.04 0.02 Abs Immat Gran (auto) 0.07 0.06 Imm/Tot Granulo (auto) 0.7 0.8 INR 1.01 Sodium 137 137 Potassium 4.4 4.0 Chloride 104 102 Carbon Dioxide 20 23 Anion Gap 13 12 BUN 101 H 99 H Creatinine 2.5 H 2.7 H Estimated Creat Clear 15.80 14.63 Estimated GFR 20 18 Glucose 196 H 136 H Calcium 8.4 8.5 Total Bilirubin 0.7 AST 28 ALT 25 Alkaline Phosphatase 97 Total Protein 7.1 Albumin 4.1
[2023-10-18] MEDS: ACETAMINOPHEN 500 MG TABLET 1000 MG PO ×2 (13:59→20:47)
[2023-10-18] MEDS: INSULIN ASPART 100 UNIT/ML SUBCUT ×3 (14:15→20:51)
--- NOTE | 2023-10-18 16:37 | PC.SOCIAL ---
Discharge planning: Pt is being recommended for home health PT/OT. Social work called [facility] to inquire about openings. They have openings and requested this worker fax them a referral to #[phone]. Social work to follow-up as needed.
--- NOTE | 2023-10-18 19:15 | PC.NURSE ---
End of shift: patient pleasant and cooperative. Ipad ultrasound supervisor used and family at bedside. Patients VSS, pain managed with PRN oxy and tylenol. Patient tolerating reg. diet, ambulates using platform walker and GB. IV in right FA SL and Patent. Left wrist splinted.
[2023-10-18] MEDS: PRAVASTATIN SODIUM 20 MG TABLET PO (20:48)
[2023-10-18] MEDS: INSULIN GLARGINE,HUM.REC.ANLOG 100 UNIT/ML INSULN.PEN 8 UNIT SUBCUT (20:53)
[2023-10-19 02:10] VITALS: BP 123/79; PULSE 85; RESP 20; TEMP 36.8; O2SAT 97
[2023-10-19 02:20] VITALS: PULSE 83
[2023-10-19] MEDS: ISOSORBIDE DINITRATE 10 MG TABLET 40 MG PO (06:00)
[2023-10-19] MEDS: OXYCODONE 5 MG TABLET PO ×2 (06:03→13:14)
--- NOTE | 2023-10-19 06:45 | PC.NURSE ---
Patient pleasant, alert and oriented. Ambulated to the bathroom with platform walker, gait belt and assist of one. Given scheduled Tylenol and PRN Oxycodone?for pain in her right wrist rated 4/10. ?
[2023-10-19] MEDS: ACETAMINOPHEN 500 MG TABLET 1000 MG PO (08:34)
[2023-10-19] MEDS: INSULIN ASPART 100 UNIT/ML SUBCUT (08:36)
[2023-10-19 08:37] VITALS: BP 115/75; PULSE 81; RESP 16; RESP 20; TEMP 36.9; O2SAT 97
[2023-10-19] MEDS: OMEPRAZOLE 20 MG CAPSULE DR 40 MG PO (08:42)
[2023-10-19] MEDS: ASPIRIN 81 MG TABLET EC PO (08:42)
[2023-10-19] MEDS: ESCITALOPRAM 10 MG TABLET 20 MG PO (08:42)
[2023-10-19] MEDS: carvediloL 25 MG TABLET PO (08:42)
[2023-10-19] MEDS: TORSEMIDE 20 MG TABLET 40 MG PO (08:43)
[2023-10-19] MEDS: predniSONE 10 MG TABLET PO (08:43)
[2023-10-19] MEDS: SODIUM CHLORIDE 0.9 % (FLUSH) 10 ML SYRINGE 5 ML IVF (08:45)
[2023-10-19 08:55] LABS: HCO3 VBG 24 mmol/L (21-28); Ionized Calcium* 1.05 mmol/L (1.11-1.30); Lactate* 1.3 mmol/L (0.5-1.9); PCO2 VBG 40 mmHG (40-50); PO2 VBG 57.4 mmHG (25-47); pH VBG 7.395 (7.32-7.43)
[2023-10-19 08:58] LABS: Hematocrit 33.4 % (33.0-51.0); Hemoglobin* 10.4 gm/dL (12.0-16.0); Mean Corpuscular HGB Conc 31 gm/dL (32-36); Mean Corpuscular Hemoglobin 27 pg (26-34); Mean Corpuscular Volume 88 fL (80-100); Platelet Count* 133 K/uL (140-440); Red Blood Count 3.79 m/uL (4.00-5.20)
[2023-10-19 09:03] LABS: Slide Review Reflex No
[2023-10-19 09:18] LABS: Albumin* 3.8 g/dL (3.3-5.0); Chloride* 102 mmol/L (96-114); Potassium* 3.7 mmol/L (3.6-5.1); Sodium* 135 mmol/L (135-149)
[2023-10-19 09:21] LABS: Est. Creatinine Clearance* 13.17; Estimated Glomerular Filt Rate 16 ml/min
[2023-10-19 09:22] LABS: Anion Gap 10 mEq/L (7-15); Blood Urea Nitrogen* 106 mg/dL (7-30); Calcium* 8.3 mg/dL (8.4-10.6); Carbon Dioxide* 23 mmol/L (20-32); Glucose* 141 mg/dL (60-115); Magnesium* 2.2 mg/dL (1.5-2.6); Phosphorus* 5.1 mg/dL (2.5-4.5)
[2023-10-19 09:25] LABS: C Reactive Protein* 4.3 mg/dL (0.5-1.0)
[2023-10-19 11:15] VITALS: BP 103/67; PULSE 81; RESP 20; TEMP 36.9; O2SAT 92
--- NOTE | 2023-10-19 12:11 | PC.SOCIAL ---
Addendum entered by IRAIDA Berger 10/19/23 13:14: Discharge planning: [facility] is able to open the pt for services starting 10/22. [facility] will reach out to pt's daughter, Vani, to set-up the intake appointment. Social work to follow-up as needed. Original Note: Discharge planning: broom worker sent a referral to [facility] on behalf of the pt. The referral was sent via fax to #[phone]. Pt's daughter, Vani Quiroz, was updated via phone. Social work to follow-up as needed.
--- NOTE | 2023-10-19 13:09 | PM.DS1 ---
DS: Providers Provider Date Seen: 10/19/23 Date of admission: 10/17/23 19:31 Primary care physician: Ginger Ewing DO Admitting Clinician: Shakeel Walker MD Consults: 10/17/23 19:53 Consult to Physical Therapy [CONS] Routine Comment: Reason(s) for PT Consult:: Evaluate and Treat Any Restrictions?:: No Restrictions Consult to Web Application Developer [CONS] Routine Comment: Reason for Consult:: Discharge Planning Needs 10/17/23 19:55 Consult to Occupational Therapy [CONS] Routine Comment: Reason(s) for OT Consult:: Evaluate and Treat Any Restrictions?:: No Restrictions 10/17/23 20:52 Consult to Web Application Developer [CONS] Routine Comment: Reason for Consult:: Recreation Activities Coordinator Needed 10/17/23 21:01 Consult to Web Application Developer [CONS] Routine Comment: Reason for Consult:: Recreation Activities Coordinator Needed 10/17/23 21:06 Consult to Physical Therapy [CONS] Routine Comment: Reason(s) for PT Consult:: Recent Falls Any Restrictions?:: See Comment Comment: Left arm fracture 10/18/23 08:01 Consult to Physician [CONS] Routine Comment: Minimally displaced fx greater trochanter Consulting Provider: Manolo Mayen Has provider been notified: No Attending Physician on discharge: Krystian Smith MD [facility] Date of Discharge: 10/19/23 DS: Diagnosis Discharge Diagnosis (1) Fracture of greater trochanter of left femur: Status: Acute Problem details: Weight-bearing as tolerated. Quad cane recommended by Physical therapy. In-home physical and occupational therapy recommended at discharge. She will be staying with her daughter. Follow-up with orthopedics as outlined in discharge summary. (2) Fracture of wrist: Status: Acute Problem details: Non operative care. Splint placed. Orthopedic follow-up as outlined in discharge summary. 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 baseline creatinine: 3.12, 2.75, 2.8 in recent checks daily BMP; avoid NSAIDS and nephrotoxic agents (6) Type II diabetes mellitus: Status: Acute Problem details: continue lantus and SSI (7) Depression: Status: Acute Problem details: continue lexapro DS: Summary Hospital Course Hospital Course: FINAL DIAGNOSIS/FOLLOW UP ISSUES: 1. Fractures of the greater trochanter, left hip and fractures of the distal ulna, left wrist after a mechanical fall at home. Non operative care. Discharged in the care of her daughter. In-home home health arranged. Follow up with Orthopedics arranged. BRIEF HOSPITAL COURSE: Patient was admitted for 3 days. Synopsis of acute inpatient issues are outlined above. Chronic medical conditions with notable findings outlined above. Anna was not able to walk independently after her ER evaluation. She was admitted under observation status for her fractures. We appreciate the assistance of orthopedics. Our physical therapy and occupational therapy teams worked with Anna and her daughter. At discharge she was issued a quad cane and gait belt. Her pain was better managed. She declined TCU stay. DISCHARGE MEDICATIONS: See Reconciled list - SIGNIFICANT CHANGES: Hydrocodone p.r.n. Specific instructions to the patient and follow-up are outlined below. REVIEW OF SYSTEMS No new chest pain or dyspnea Pain controlled No voiding difficulties Tolerating diet challenge PHYSICAL EXAM: CONSTITUTIONAL: Alert, calm. Working well with therapy teams. VITAL SIGNS: see record. HEENT: Normocephalic, atraumatic. PERRL, EOMI, conjunctivae pink, no scleral icterus. Ears and nose externally normal. Pharynx normal. NECK: No JVD. No carotid bruit, no thyromegaly, no adenopathy. CHEST: Clear to auscultation bilaterally. HEART: S1 and S2 normal. Edema ABDOMEN: Soft, nontender. Normal bowel sounds. MUSCULOSKELETAL: Splinted left wrist. Able to weightbear on her left hip. NEURO: Cranial nerves intact. Grossly intact. No asymmetric findings. SKIN: No rashes, petechiae, concerning changes PSYCHIATRIC: Mood euthymic. DISPOSITION: Home with daughter Time spent on discharge 37 minutes. Status at Discharge Functional status at discharge: uses cane/walker Overall status at discharge: patient is progressing back to baseline Time Spent with Patient Time attestation: Total time spent providing and/or coordinating discharge services: Time spent: Greater than 30 minutes Exam Const: Vital Signs, click to edit/add: Vital Signs - 24 hr 10/18/23 15:00 10/18/23 15:00 10/18/23 20:00 Temperature 98.4 F 98.5 F Pulse Rate Pulse Rate [Pulse Oximeter] 86 86 82 Respiratory Rate 16 16 16 Blood Pressure [Ri ght Arm] 104/69 112/71 Pulse Oximetry 92 95 Oxygen Delivery Me thod Nasal Cannula Room Air Oxygen Flow Rate 2.5 10/18/23 23:00 10/19/23 02:10 10/19/23 02:20 Temperature 98.9 F 98.2 F Pulse Rate 83 Pulse Rate [Pulse Oximeter] 84 85 Respiratory Rate 17 20 Blood Pressure [Ri ght Arm] 123/78 123/79 Pulse Oximetry 95 97 Oxygen Delivery Me thod Room Air Nasal Cannula Oxygen Flow Rate 2 10/19/23 08:37 10/19/23 08:37 10/19/23 11:15 Temperature 98.4 F 98.4 F Pulse Rate Pulse Rate [Pulse Oximeter] 81 81 81 Respiratory Rate 16 20 20 Blood Pressure [Ri ght Arm] 115/75 103/67 Pulse Oximetry 97 92 Oxygen Delivery Me thod Room Air Room Air Oxygen Flow Rate DS: Data Data Completed and Pending Labs on day of discharge: Labs from last 24 hours 10/19/23 08:46 WBC 8.20 RBC 3.79 L Hgb 10.4 L Hct 33.4 MCV 88 MCH 27 MCHC 31 L Plt Count 133 L VBG pH 7.395 VBG pCO2 40 VBG pO2 57.4 H VBG HCO3 24 Sodium 135 Potassium 3.7 Chloride 102 Carbon Dioxide 23 Anion Gap 10 BUN 106 H Creatinine 3.0 H Estimated Creat Clear 13.17 Estimated GFR 16 Glucose 141 H Lactate 1.3 Calcium 8.3 L Ionized Calcium Frieda 1.05 L Phosphorus 5.1 H Magnesium 2.2 C-Reactive Protein 4.3 H Albumin 3.8 TSH 0.510 Discharge Plan Discharge Disposition: Home w/ Parent or Adult Date of Admission: 10/17/23 19:31 Attending Provider on Discharge: Krystina Smith Consulting Providers: Manolo Mayen Primary Care Provider: Ginger Ewing Condition: Stable Anticipated Discharge Date/Time: 10/19/23 10:11 Discharge Medications: New hydrocodone-acetaminophen 5-325 mg tablet 1 tab PO Q4-6H PRN (Reason: pain) Qty: 15 0RF (DME) cane Device See Rx Instructions .Route Qty: 1 0RF Rx Instructions: As directed (DME) miscellaneous medical supply Misc See Rx Instructions .Route Qty: 1 0RF Rx Instructions: As directed Continued (DME) Accu-Chek Guide test strips Strip MISCELLANEOUS QID amlodipine 5 mg tablet 5 mg PO DAILY aspirin 81 mg tablet,delayed release (DR/EC) 81 mg PO DAILY carvedilol 25 mg tablet 25 mg PO BID ferrous sulfate [FeroSul] 325 mg (65 mg iron) tablet 325 mg PO DAILY escitalopram oxalate 20 mg tablet 20 mg PO QAM prednisone 10 mg tablet 5 mg PO DAILY torsemide 20 mg tablet 40 mg PO DAILY hydralazine 100 mg tablet 100 mg PO TID pantoprazole 40 mg tablet,delayed release (DR/EC) 40 mg PO DAILY isosorbide dinitrate 20 mg tablet 40 mg PO TID pravastatin 20 mg tablet 20 mg PO HS hydroxyzine HCl 10 mg tablet 10 mg PO HS PRN (Reason: anxiety) (DME) pen needle, diabetic [BD Ultra-Fine Short Pen Needle] 31 gauge x 5/16 needle MISCELLANEOUS Patient Comments: USE TO ADMINISTER INSULIN AT HOME FOUR TIMES A DAY. insulin glargine [Basaglar KwikPen U-100 Insulin] 100 unit/mL (3 mL) insulin pen 8 unit subcut HS vitamin E (dl, acetate) 180 mg (400 unit) capsule 180 mg PO DAILY sirolimus 0.5 mg tablet 0.5 mg PO DAILY Astagraf XL 0.5 mg capsule,extended release 24hr 1.5 mg PO DAILY Fiasp FlexTouch U-100 Insulin 100 unit/mL (3 mL) insulin pen 5 - 7 unit subcut TIDWM Rx Instructions: 5 IN AM 7 WITH LUNCH 7 WITH SUPPER cholecalciferol (vitamin D3) 50 mcg (2,000 unit) tablet 50 mcg PO DAILY Breezewood-3 2100 1,050-1,200 mg capsule 1 cap PO TID Discontinued acetaminophen 500 mg tablet 500 mg PO Q8H PRN (Reason: pain) Discharge Orders: Discharge Order (Routine); Ordered 10/19/23 Ordered By: Krystina Smith Patient Education: Hydrocodone/Acetaminophen (By mouth), Wrist Fracture in Adults (DC), Fall Prevention for Older Adults (DC) Additional Instructions: Wear wrist splint and use pain medicine as needed and directed. Follow-up with orthopedic clinic for ongoing management. Call [phone] for appointment. Activity Level: Activity as Tolerated and Weight Bearing as Tolerated Discharge Diet: Regular Follow Up Appointments: Manolo Mayen MD [Staff Physician] - 11/13/23 1:00 pm ([facility] for follow-up. [address] [place] [address]) Harshal Smith MD [Staff Physician] - (1-2 weeks) Ginger Ewing DO [Primary Care Provider] - 10/29/23 1:05 pm ([facility] for follow-up post fall/fracture/hospitalization.) Forms: Be Spotted Info Instructions
--- NOTE | 2023-10-19 13:21 | PC.NURSE ---
Discharge: Patient pleasant and cooperative. Patient vitally stable, lungs clear, BS WNL, IV removed, catheter intact. Patient rates wrist and hip pain at most 6/10, but pain is more so in the wrist, scheduled tylenol given and 5 mg of oxy once. Patient 1 assist, gb with quad base cane. Patient tolerating regular diet and urinating. Left wrist splint C/D/I. Patients daughter signed belongings sheet and discharge from, home meds were returned to patient. Patient and daughter had no further questions regarding discharge instructions. Patient left the floor to home by wheelchair at 1318.
== END 2023-10-19 13:18 | disposition home or self-care (01) ==
LOC: ED 18:30 → MEDSURG 19:32
PROVIDERS: Family Medicine; Admitting Provider Hospitalist; Emergency Provider Emergency Medicine Emergency Medical Services; PCP Family Medicine; Visit Provider Hospitalist
DX: S62.102A Fracture of unspecified carpal bone, left wrist, initial encounter for closed fracture (principal); S72.112A Displaced fracture of greater trochanter of left femur, initial encounter for closed fracture; M25.552 Pain in left hip; W19.XXXA Unspecified fall, initial encounter; I13.0 Hypertensive heart and chronic kidney disease with heart failure and stage 1 through stage 4 chronic kidney disease, or unspecified chronic kidney disease; I50.20 Unspecified systolic (congestive) heart failure; E11.22 Type 2 diabetes mellitus with diabetic chronic kidney disease; N18.4 Chronic kidney disease, stage 4 (severe); I50.21 Acute systolic (congestive) heart failure; Z94.1 Heart transplant status; Z79.4 Long term (current) use of insulin; Z79.82 Long term (current) use of aspirin; F32.A Depression, unspecified; Z66 Do not resuscitate
CPT/HCPCS: 36415; 70450; 72192; 73100; 73110; 73502; 80048; 80053; 80069; 82330; 82803; 82962; 83605; 83735; 84443; 85025; 85027; 85610; 86140; 96372; 96374; 97110; 97116; 97161; 97165; 97530; 97535; 99284; 99285; G0378; A9270; J1170; J1815; J7512

== ENCOUNTER 2025-02-10 13:35 | Outpatient (CLI) | payer MEDICARE, OTHER, SELFPAY ==
--- NOTE | 2025-02-10 13:45 | CRLHL7_ITS ---
For Patients: As a result of the Century Cures Act, medical imaging exams and procedure reports are released immediately into your electronic medical record. You may view this report before your referring provider. If you have questions, please contact your health care provider. Indication: Right arm numbness. Technique: Multiplanar multisequence noncontrast MR images of the brain. Comparison: CT brain 05/24/2016. Findings: Mild diffuse cerebral volume loss. No mass effect or midline shift. Minimal FLAIR hyperintensities in the supratentorial white matter, typical for chronic microvascular ischemic changes. Chronic lacunar infarctions in the cerebellar hemispheres. Punctate foci of susceptibility along the high right parietal and superior right temporal cortex may represent chronic microhemorrhages or mineralization. No recent intracranial hemorrhage or pathologic extra-axial fluid collection. Few punctate foci of diffusion and FLAIR hyperintense signal within the mid left precentral gyrus (series 5, image 45) demonstrates ADC isointensity. The major arterial flow voids of the skull base are preserved. Thinning of the ocular lenses. Severely opacified maxillary sinuses. The mastoid air cells are clear. Circumscribed T2 hyperintense lesions in the right parotid gland measuring up to 12 mm. Impression: 1. Few punctate foci of diffusion hyperintense signal within the mid left precentral gyrus, favored to represent late subacute to chronic infarctions. 2. Chronic lacunar infarctions in the cerebellar hemispheres. 3. Mild diffuse cerebral volume loss and minimal chronic microvascular ischemic changes. 4. Small, circumscribed lesions in the right parotid gland are incompletely characterized. Targeted ultrasound or contrast-enhanced CT neck are offered for further evaluation. 5. Severe opacification of the maxillary sinuses. Dictated by Jamie Wilson MD @ 02/10/2025 4:10:36 PM (Electronically Signed)
== END 2025-02-10 13:36 | disposition home or self-care (01) ==
PROVIDERS: PCP Family Medicine; Visit Provider Internal Medicine Cardiovascular Disease
DX: R20.0 Anesthesia of skin (principal); I63.81 Other cerebral infarction due to occlusion or stenosis of small artery; I67.82 Cerebral ischemia
CPT/HCPCS: 70551